=== PATIENT | female | born 1980 | race African-American/Black ===

== ENCOUNTER 2017-11-06 02:42 | Emergency (ER) | payer MEDICAID ==
[~2017-11-06] VITALS: Ht 170.2 cm; Wt 160.0 kg
[2017-11-06 02:48] VITALS: BP 157/94
== END 2017-11-06 05:31 ==
LOC: ER 02:54
DX: R07.89 Other chest pain (principal); Z53.21 Procedure and treatment not carried out due to patient leaving prior to being seen by health care provider
CPT/HCPCS: 93005